=== PATIENT | female | born 1995 | race American Indian/Alaskan Native ===

== ENCOUNTER 2018-09-23 21:21 | Emergency (ER) | payer OTHER ==
[2018-09-23 21:49] LABS: Basophils % (Auto) 0.2 % (0.0-1.8); Hemoglobin 12.8 gm/dl (10.1-14.3); Lymphocytes # (Auto) 1.9 K/mm3 (1.2-5.4); Lymphocytes % (Auto) 15.9 % (13.4-35.0); Mean Corpuscular HGB Conc 34 % (30-34); Mean Corpuscular Hemoglobin 32 pg (28-32); Mean Corpuscular Volume 94 fl (79-97); Monocytes # (Auto) 0.8 K/mm3 (0.0-0.8); Monocytes % (Auto) 7.2 % (0.0-7.3); Platelet Count 242 K/mm3 (140-440); Red Blood Count 4.06 M/mm3 (3.65-5.03); Red Cell Distribution Width 13.6 % (13.2-15.2)
[2018-09-23] MEDS ORDERED: MORPHINE IV ONE (21:49)
[2018-09-23] MEDS ORDERED: ZOFRAN IV ONE (21:49)
[2018-09-23] MEDS ORDERED: NACL 0.9% 1000 ML 1,000 ML IV ONE (21:49)
[2018-09-23] MEDS ORDERED: TYLENOL PO ONE (21:49)
--- NOTE | 2018-09-23 21:54 | Emergency Department Report ---
ED Abdominal Pain HPI - General Chief Complaint: Abdominal Pain Stated Complaint: ABD PAIN Time Seen by Provider: 09/23/18 21:46 Source: patient, EMS Mode of arrival: Stretcher Limitations: No Limitations - History of Present Illness Initial Comments: Patient is a 22 years old female with no significant past medical history. Patient presented to the ER complaining of lower abdominal pain started this morning associated with some fever. Patient denied any nausea or vomiting. She denied any urinary symptoms including dysuria or frequency. Patient also denied any vaginal discharge or vaginal bleeding. Patient stated that her period is irregular. MD Complaint: abdominal pain -: This morning Location: diffuse Radiation: none Migration to: no migration Severity: moderate Quality: sharp Consistency: constant Improves With: nothing - Related Data Previous Rx's Medication Instructions Recorded Last Taken Type Naproxen [Naprosyn] 500 mg PO BID #14 tablet 09/24/18 Unknown Rx Ondansetron [Zofran Odt] 4 mg PO Q8HR PRN #14 tab.rapdis 09/24/18 Unknown Rx Allergies Allergy/AdvReac Type Severity Reaction Status Date / Time pseudoephedrine AdvReac Headache Verified 09/23/18 21:30 [From [facility]] ED Review of Systems ROS: Stated complaint: ABD PAIN Other details as noted in HPI Comment: All other systems reviewed and negative Constitutional: chills, fever Respiratory: denies: cough, orthopnea, shortness of breath, SOB with exertion, SOB at rest, wheezing Cardiovascular: denies: chest pain, palpitations Gastrointestinal: abdominal pain. denies: nausea, vomiting, diarrhea, constipation, hematemesis, melena, hematochezia Genitourinary: denies: urgency Musculoskeletal: denies: back pain Neurological: denies: headache, weakness, numbness, paresthesias, confusion, abnormal gait, vertigo ED Past Medical Hx - Past Medical History Previous Medical History?: No - Surgical History Past Surgical History?: No - Social History Smoking Status: Never Smoker Substance Use Type: None - Medications Home Medications: Home Medications Medication Instructions Recorded Confirmed Last Taken Type Naproxen [Naprosyn] 500 mg PO BID #14 tablet 09/24/18 Unknown Rx Ondansetron [Zofran Odt] 4 mg PO Q8HR PRN #14 tab.rapdis 09/24/18 Unknown Rx ED Physical Exam - General Limitations: No Limitations General appearance: alert, in no apparent distress - Head Head exam: Present: atraumatic, normocephalic, normal inspection - Eye Eye exam: Present: normal appearance, PERRL - ENT ENT exam: Present: normal exam, normal orophraynx, mucous membranes moist - Neck Neck exam: Present: normal inspection, full ROM. Absent: tenderness, meningismus, lymphadenopathy, thyromegaly - Respiratory Respiratory exam: Present: normal lung sounds bilaterally - Cardiovascular Cardiovascular Exam: Present: tachycardia, normal heart sounds - GI/Abdominal GI/Abdominal exam: Present: soft, tenderness, normal bowel sounds. Absent: distended, guarding, rebound, rigid, diminished bowel sounds, organomegaly, mass, bruit, pulsatile mass, hernia - Extremities Exam Extremities exam: Present: normal inspection, full ROM, normal capillary refill. Absent: pedal edema, calf tenderness - Back Exam Back exam: Present: normal inspection, full ROM. Absent: tenderness, CVA tenderness (R), CVA tenderness (L), muscle spasm, paraspinal tenderness, vertebral tenderness - Neurological Exam Neurological exam: Present: alert, oriented X3, CN II-XII intact, normal gait, reflexes normal - Skin Skin exam: Present: warm, intact, normal color ED Course Vital Signs 09/23/18 09/23/18 09/23/18 21:25 22:00 22:09 Temperature 101.4 F H Pulse Rate 122 H Respiratory 18 18 15 Rate Blood Pressure 131/73 O2 Sat by Pulse 100 100 Oximetry 09/23/18 09/23/18 09/23/18 22:10 22:12 22:14 Temperature Pulse Rate 117 H 113 H 113 H Respiratory 15 9 L 11 L Rate Blood Pressure O2 Sat by Pulse 97 99 99 Oximetry 09/23/18 09/23/18 09/23/18 22:16 22:18 22:20 Temperature Pulse Rate 119 H 117 H 134 H Respiratory 18 14 13 Rate Blood Pressure O2 Sat by Pulse 99 97 97 Oximetry 09/23/18 09/23/18 09/23/18 22:22 22:24 22:26 Temperature Pulse Rate 120 H 114 H 114 H Respiratory 17 17 18 Rate Blood Pressure O2 Sat by Pulse 95 97 98 Oximetry 09/23/18 09/23/18 09/23/18 22:28 22:30 22:32 Temperature Pulse Rate 113 H 112 H 110 H Respiratory 16 17 17 Rate Blood Pressure O2 Sat by Pulse 97 97 96 Oximetry 09/23/18 09/23/18 09/23/18 22:34 22:36 22:38 Temperature Pulse Rate 110 H 110 H 113 H Respiratory 17 18 16 Rate Blood Pressure O2 Sat by Pulse 97 98 99 Oximetry 09/23/18 09/23/18 09/23/18 22:40 22:42 22:44 Temperature Pulse Rate 117 H 113 H 113 H Respiratory 20 16 17 Rate Blood Pressure O2 Sat by Pulse 99 98 98 Oximetry 09/23/18 09/23/18 09/23/18 22:46 22:48 22:50 Temperature Pulse Rate 114 H 111 H 114 H Respiratory 18 18 19 Rate Blood Pressure O2 Sat by Pulse 97 98 99 Oximetry 09/23/18 09/23/18 09/23/18 22:52 22:54 22:56 Temperature Pulse Rate 116 H 114 H 117 H Respiratory 19 18 15 Rate Blood Pressure O2 Sat by Pulse 100 99 100 Oximetry 09/23/18 09/23/18 09/23/18 22:58 23:00 23:02 Temperature Pulse Rate 118 H 118 H 119 H Respiratory 19 15 17 Rate Blood Pressure O2 Sat by Pulse 99 99 99 Oximetry 09/23/18 23:04 Temperature Pulse Rate 116 H Respiratory 13 Rate Blood Pressure O2 Sat by Pulse 99 Oximetry ED Medical Decision Making - Lab Data Result diagrams: 09/23/18 21:40 09/23/18 21:40 - Radiology Data Radiology results: report reviewed Referring Physician: EDVIN OMALLEY Patient Name: BARB MC Date of : 1995 Sex: Female Report Date: 2018-09-24 Report Status: Finalized Findings [facility] [address] [place] [address] Cat Scan Report Signed Patient: BARB MC MR#: [id number] : 1995 Acct:[id number] Age/Sex: 22 / F ADM Date: 09/23/18 Loc: ED Attending Dr: Ordering Physician: EDVIN OMALLEY Date of Service: 09/23/18 Procedure(s): CT abdomen pelvis w con Accession Number(s): [id number] cc: EDVIN OMALLEY CT abdomen pelvis w con INDICATION / CLINICAL INFORMATION: abdominal pain. TECHNIQUE: All CT scans at this location are performed using CT dose reduction for ALARA by means of automated exposure control. COMPARISON: None available. FINDINGS: The lower lungs are clear. ABDOMEN: The gallbladder, liver, spleen and pancreas are normal No evidence of hydronephrosis or renal abnormality. Small bowel is normal. Pelvis: There are mildly enlarged mesenteric lymph nodes in the right lower quadrant. The largest node measures 2.4 x 1.7 cm. No abnormal fluid collections or acute inflammatory changes are seen. The appendix is normal. No osseous abnormality. IMPRESSION: 1. Mildly enlarged right lower quadrant mesenteric lymph nodes without identified acute inflammatory abnormality. Signer Name: Malick Ncihole MD Signed: 09/24/2018 12:43 AM Workstation Name: [email or web address] Transcribed By: LIO Dictated By: Malick Nichole MD Electronically Authenticated By: Malick Nichole MD Signed Date/Time: 09/24/18 0043 DD/ 0038 TD/TT: - Medical Decision Making Patient is a 22 years old female with no significant past medical history. Patient presented to the ER complaining of lower abdominal pain started this morning associated with some fever. Patient denied any nausea or vomiting. She denied any urinary symptoms including dysuria or frequency. Patient also denied any vaginal discharge or vaginal bleeding. Patient stated that her period is irregular. Patient received morphine and Zofran. Patient stated that she is feeling much better. Labs reviewed and is unremarkable. CT abdomen and pelvis is negative for acute finding except for enlarged mesenteric lymph nodes in the right lower quadrant area but normal appendix. Patient advised to follow-up with her primary care physician in the next 2-3 days and to return to the ER if symptoms are not improved. Critical care attestation.: If time is entered above; I have spent that time in minutes in the direct care of this critically ill patient, excluding procedure time. ED Disposition Clinical Impression: Abdominal pain, Mesenteric adenitis Disposition: DC-01 TO HOME OR SELFCARE Is pt being admited?: No Condition: Stable Instructions: Abdominal Pain (ED), Adenitis (ED) Prescriptions: Naproxen [Naprosyn] 500 mg PO BID #14 tablet Ondansetron [Zofran Odt] 4 mg PO Q8HR PRN #14 tab.rapdis PRN Reason: Nausea And Vomiting Referrals: [facility] [Provider Group] - 3-5 Days
[2018-09-23 22:19] LABS: BUN/Creatinine Ratio 8; Blood Urea Nitrogen 6 mg/dL (7-17); Calcium 9.4 mg/dL (8.4-10.2)
[2018-09-23 22:20] LABS: Alanine Aminotransferase 10 units/L (7-56); Albumin 4.2 g/dL (3.9-5); Hemolysis Index 3
[2018-09-23 23:59] LABS: Bilirubin,Urine NEG (Negative); Blood,Urine SM (Negative); Color,Urine Yellow (Yellow); Mucus,Urine FEW /HPF; Protein,Urine <15 mg/dL mg/dL (Negative); Urobilinogen,Urine < 2.0 mg/dL (<2.0)
--- NOTE | 2018-09-24 00:47 | Cat Scan Report ---
CT abdomen pelvis w con INDICATION / CLINICAL INFORMATION: abdominal pain. TECHNIQUE: All CT scans at this location are performed using CT dose reduction for ALARA by means of automated e xposure control. COMPARISON: None available. FINDINGS: The lower lungs are clear. ABDOMEN: The gallbladder, liver, spleen and pancreas are normal No evidence of hydronephrosis or renal abnormality. Small bowel is normal. Pelvis: There are mildly enlarged mesenteric lymph nodes in the right lower quadrant. The largest node measures 2.4 x 1.7 cm. No abnormal fluid collections or acute inflammatory changes are seen. The appendix is normal. No osseous abnormality. IMPRESSION: 1. Mildly enlarged right lower quadrant mesenteric lymph nodes without identified acute inflammatory abnormality. Signer Name: Malick Nichole MD Signed: 09/24/2018 12:43 AM Workstation Name: [id number]
[2018-09-24 01:59] VITALS: BP 103/47
== END 2018-09-24 01:00 | disposition home or self-care (01) ==
LOC: ED 21:21
DX: I88.0 Nonspecific mesenteric lymphadenitis (principal); Z88.8 Allergy status to other drugs, medicaments and biological substances; Z79.899 Other long term (current) drug therapy
CPT/HCPCS: 36415; 74177; 80053; 81001; 83690; 84703; 85025; 96374; 96375; 99284; J2270; J2405; J7030; Q9967

== ENCOUNTER 2019-01-05 15:00 | Emergency (ER) | payer OTHER ==
[2019-01-05 16:23] VITALS: BP 147/84
--- NOTE | 2019-01-05 16:33 | Emergency Department Report ---
Chief Complaint: Urogenital-Female Stated Complaint: CHECK Time Seen by Provider: 01/05/19 16:28 - HPI History of Present Illness: Pt present for confirmation states LMP 12/01/18 states +preg test at home and at urgent care today-sent here form urgent care for confirmation denies abdominal pain, vaginal bleeding, dysuria, vaginal discharge, or any other complaints - Exam Vital Signs: Vital Signs 01/05/19 15:10 Temperature 98.6 F Pulse Rate 107 H Respiratory 16 Rate Blood Pressure 147/84 O2 Sat by Pulse 98 Oximetry Physical Exam: normal appearance, no acute distress noted no abdominal tenderness, guarding, rebound, or distension noted on exam Heart: RRR Lungs: clear bilaterally MSE screening note: Focused history and physical exam performed. Due to findings the following was ordered: No emergency symptoms noted today exam wnl HR 88 bpm on exam Pt to d/c home with OBGYN f/u Patient discussed with doctor:: SHANTANU KRAUSE ED Disposition for MSE Condition: Stable
== END 2019-01-05 17:18 | disposition home or self-care (01) ==
LOC: ED 15:00
DX: Z34.90 Encounter for supervision of normal pregnancy, unspecified, unspecified trimester (principal)

== ENCOUNTER 2019-08-12 02:37 | Outpatient (CLI) | payer OTHER ==
[2019-08-12] MEDS ORDERED: ACETAMINOPHEN 500 MG TAB PO ONE (04:18)
--- NOTE | 2019-08-12 05:19 | XRay Report ---
Right femur 4 views INDICATION: Right femur pain following injury IMPRESSION: The right femur is intact. Signer Name: Jhony Oh MD Signed: 08/12/2019 5:14 AM Workstation Name: [id number]
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
[2019-08-12 09:41] VITALS: BP 122/69
--- NOTE | 2019-08-12 11:44 | Ultrasound Report ---
Limited OB ultrasound for biophysical profile FINDINGS: heart rate is 156 bpm. Amniotic fluid is normal at 9.4 cm. tone, spontaneous mo tion, breathing movements and SONI all score 2/2 for a total of 8/8. Signer Name: Sancho Burton MD Signed: 08/12/2019 11:39 AM Workstation Name: [employer] [id number]
--- NOTE | 2019-08-12 11:44 | Ultrasound Report ---
Limited OB ultrasound for biophysical profile FINDINGS: heart rate is 156 bpm. Amniotic fluid is normal at 9.4 cm. tone, spontaneous mo tion, breathing movements and SONI all score 2/2 for a total of 8/8. Signer Name: Sancho Burton MD Signed: 08/12/2019 11:39 AM Workstation Name: [id number]
== END 2019-08-12 12:28 | disposition home or self-care (01) ==
LOC: ED 02:37 → TRG 02:37 → EDSTATUS 06:18 → APU 06:20 → TRG 12:28
PROVIDERS: ATTEND Obstetrics & Gynecology
DX: O26.893 Other specified pregnancy related conditions, third trimester (principal); M79.661 Pain in right lower leg; Z3A.36 36 weeks gestation of pregnancy
CPT/HCPCS: 76815; 76819; 99285